=== PATIENT | female | born 1970 | race African-American/Black ===

== ENCOUNTER 2016-09-10 12:39 | Emergency (ER) | payer MEDICAID ==
[~2016-09-10] VITALS: Ht 167.6 cm; Wt 90.7 kg
[2016-09-10 12:46] VITALS: BP 114/69; PULSE 100; RESP 18; TEMP 98.1; O2SAT 94
--- NOTE | 2016-09-10 13:12 | NUR ---
BROUGHT BACK TO BED #8 AND REPORT GIVEN TO EBONIE
--- NOTE | 2016-09-10 13:16 | NUR ---
Dr García at bedside examining patient
--- NOTE | 2016-09-10 13:18 | NUR ---
Pt brought by self, A&Ox4, pt c/o cough and congestion, skin pink and warm, cap refill <3, VS WNL, ambulatory, cap refill <3.
[2016-09-10] MEDS ORDERED: DEXAMETHASONE SOD PHOSPHATE 10 MG/ML VIAL IM ONE (13:30)
[2016-09-10] MEDS ORDERED: KETOROLAC TROMETHAMINE 60 MG/2 ML VIAL IM ONE (13:30)
[2016-09-10 14:05] VITALS: BP 116/82; PULSE 68; RESP 18; TEMP 98.1; O2SAT 94
--- NOTE | 2016-09-10 14:05 | NUR ---
Patient given written and verbal discharge instructions and verbalizes understanding. ER MD discussed with patient the results and treatment provided. Given copies of tests performed in ER. Patient in stable condition. ID arm band removed. Rx of Azythromax and Codeine with promethazine given. Patient educated on pain management and to follow up with PMD. Pain Scale 0/10. Opportunity for questions provided and answered.
== END 2016-09-10 14:05 | disposition home or self-care (01) ==
LOC: SED 12:39
DX: J20.9 Acute bronchitis, unspecified (principal); J02.9 Acute pharyngitis, unspecified; I10 Essential (primary) hypertension; F17.200 Nicotine dependence, unspecified, uncomplicated; Z71.6 Tobacco abuse counseling; Z88.0 Allergy status to penicillin; Z88.1 Allergy status to other antibiotic agents
CPT/HCPCS: 71010; 96372; 99284; J1100; J1885

== ENCOUNTER 2016-12-02 21:02 | Emergency (ER) | payer MEDICAID ==
[~2016-12-02] VITALS: Ht 167.6 cm; Wt 88.5 kg
[2016-12-02 21:10] VITALS: BP 122/81; PULSE 83; RESP 18; TEMP 97.6; O2SAT 100
--- NOTE | 2016-12-02 21:10 | NUR ---
Patient triaged and placed in waiting room. VSS and patient appears in no acute distress at this time. Accompanied by self, awaiting available bed, and MD notified of need for MSE.
--- NOTE | 2016-12-02 22:00 | NUR ---
PT C/O LUNGS FILLING UP W/ FLUID AND COUGHS UP YELLOWISH FLEM AND WHITE FLUID, FEELS IT GETS WORSE AT NIGHT. ALSO STATES HER LEFT HAND SWELLS UP FROM TIME TO TIME WHERE SHE CAN'T MOVE HER FINGERS. PT A/OX4, NO SOB OR DISTRESS. AFEBRILE. AUSCULTATED RHONCHI BILATERALLY.
--- NOTE | 2016-12-02 22:25 | NUR ---
ER at bedside examining patient.
[2016-12-02 23:24] LABS: HEMATOCRIT 40.8 % (36-48); HEMOGLOBIN 13.1 g/dL (12.0-16.0); MEAN CORPUSCULAR HEMOGLOBIN 27 pg (27-31); MEAN CORPUSCULAR HGB CONC 32 % (32-36); MEAN CORPUSCULAR VOLUME 84 fL (79.0-98.0); PLATELET COUNT (AUTO) 322 K/uL (130-430); RED BLOOD CELL COUNT(AUTO) 4.88 MIL/uL (4.2-6.2); RED CELL DISTRIBUTION WIDTH 14.4 % (9.0-15.0); WHITE BLOOD COUNT (AUTO) 10.5 K/uL (4.8-10.8)
[2016-12-02 23:25] LABS: BASOPHILS # (AUTO) 0.2 K/uL (0.0-0.2); BASOPHILS % (AUTO) 1.7 % (0.0-2.0); EOSINOPHILS # (AUTO) 0.4 K/uL (0.0-0.4); EOSINOPHILS % (AUTO) 3.8 % (0.0-4.0); LYMPHOCYTES # (AUTO) 2.1 K/uL (1.0-5.5); MONOCYTES # (AUTO) 0.4 K/uL (0.0-1.0); NEUTROPHILS # (AUTO) 7.4 K/uL (1.8-7.7); NEUTROPHILS % (AUTO) 70.5 % (40.0-70.0)
[2016-12-02 23:29] LABS: CALCIUM 8.6 mg/dL (8.4-11.0); CREATININE 0.76 mg/dL (0.55-1.30); POTASSIUM 3.8 mmol/L (3.5-5.1)
[2016-12-02 23:30] LABS: ALBUMIN 3.4 g/dL (3.4-4.8); TOTAL BILIRUBIN 0.1 mg/dL (0.0-1.0); TOTAL PROTEIN, SERUM 7.4 g/dL (6.4-8.3)
[2016-12-02 23:43] LABS: BILIRUBIN,URINE NEGATIVE (NEGATIVE); BLOOD, URINE 1+ (NEGATIVE); CLARITY/URINE CLEAR (CLEAR); COLOR,URINE YELLOW (YELLOW); GLUCOSE,URINE NEGATIVE (NEGATIVE); KETONES,URINE NEGATIVE (NEGATIVE); LEUKOCYTE ESTERASE ,URINE NEGATIVE (NEGATIVE); NITRITE, URINE NEGATIVE (NEGATIVE); PROTEIN URINE NEGATIVE (NEGATIVE); UROBILINOGEN,URINE 0.2 (0.2-1.0)
[2016-12-02 23:44] LABS: BACTERIA,URINE FEW /HPF (None Seen); WBC,URINE 0-3 /HPF (0-3)
[2016-12-02 23:45] LABS: MUCUS,URINE 1+ /LPF (None Seen)
[2016-12-03 01:03] VITALS: BP 122/81; PULSE 83; RESP 18; TEMP 97.6; O2SAT 100
--- NOTE | 2016-12-03 01:03 | NUR ---
Patient given written and verbal discharge instructions and verbalizes understanding. ER MD BOSTON discussed with patient the results and treatment provided. Patient in stable condition. ID arm band removed. IV catheter removed intact and dressing applied, no active bleeding. Rx of PROMETHAZINE, DOXYCYCLINE, AND IBUPROFEN 800 given. Patient educated on pain management and to follow up with PMD. Pain Scale 0/10. Opportunity for questions provided and answered.
== END 2016-12-03 01:03 | disposition home or self-care (01) ==
LOC: SED 21:02
DX: M79.642 Pain in left hand (principal); R05 Cough; R06.02 Shortness of breath; I10 Essential (primary) hypertension; Z88.1 Allergy status to other antibiotic agents; Z88.0 Allergy status to penicillin
CPT/HCPCS: 36415; 71010; 80053; 81000-TC; 83880; 84484; 85025; 93005; 99285

== ENCOUNTER 2017-08-22 12:13 | Emergency (ER) | payer OTHER, MEDICAID ==
[~2017-08-22] VITALS: Ht 167.6 cm; Wt 95.3 kg
[2017-08-22 12:13] VITALS: BP_SYST 117
[2017-08-22 13:08] LABS: BASOPHILS % (AUTO) 0.2 % (0.0-2.0); EOSINOPHILS # (AUTO) 0.2 K/uL (0.0-0.4); EOSINOPHILS % (AUTO) 2.3 % (0.0-4.0); HEMATOCRIT 42.8 % (36-48); HEMOGLOBIN 13.7 g/dL (12.0-16.0); LYMPHOCYTES # (AUTO) 2.1 K/uL (1.0-5.5); LYMPHOCYTES % (AUTO) 20.5 % (20.5-51.5); MEAN CORPUSCULAR HEMOGLOBIN 26 pg (27-31); MEAN CORPUSCULAR HGB CONC 32 % (32-36); MEAN CORPUSCULAR VOLUME 82 fL (79.0-98.0); MONOCYTES # (AUTO) 0.4 K/uL (0.0-1.0); MONOCYTES % (AUTO) 3.5 % (1.7-9.3); NEUTROPHILS # (AUTO) 7.7 K/uL (1.8-7.7); NEUTROPHILS % (AUTO) 73.5 % (40.0-70.0); PLATELET COUNT (AUTO) 368 K/uL (130-430); RED BLOOD CELL COUNT(AUTO) 5.26 MIL/uL (4.2-6.2); RED CELL DISTRIBUTION WIDTH 15.8 % (9.0-15.0); WHITE BLOOD COUNT (AUTO) 10.4 K/uL (4.8-10.8)
[2017-08-22 13:23] LABS: PROTHROMBIN TIME 10.1 SECS (9.5-12.5)
[2017-08-22 13:43] LABS: POTASSIUM 3.9 mmol/L (3.5-5.1)
[2017-08-22 13:44] LABS: ALBUMIN 3.4 g/dL (3.4-4.8); CALCIUM 9.9 mg/dL (8.4-11.0); CREATININE 0.78 mg/dL (0.55-1.30); TOTAL BILIRUBIN 0.2 mg/dL (0.0-1.0); URIC ACID 3.1 mg/dL (2.4-7.0)
[2017-08-22 13:58] LABS: C-REACTIVE PROTEIN QUANT 11.7 mg/dL (0-0.5)
[2017-08-22] MEDS ORDERED: KETOROLAC TROMETHAMINE 60 MG/2 ML VIAL IM ONE (16:00)
[2017-08-22] MEDS ORDERED: CYCLOBENZAPRINE HCL 10 MG TABLET (FLEXERIL) PO ONE (16:00)
[2017-08-22 18:06] VITALS: BP_SYST 120
== END 2017-08-22 18:03 | disposition home or self-care (01) ==
LOC: EDBD 12:13 → SED 12:13
DX: S46.912A Strain of unspecified muscle, fascia and tendon at shoulder and upper arm level, left arm, initial encounter (principal); I10 Essential (primary) hypertension; Z88.0 Allergy status to penicillin; Z88.1 Allergy status to other antibiotic agents; X58.XXXA Exposure to other specified factors, initial encounter; Y93.89 Activity, other specified; Y92.89 Other specified places as the place of occurrence of the external cause; Y99.8 Other external cause status
CPT/HCPCS: 36415; 71045; 73030; 80053; 84484; 84550; 85025; 85610; 85730; 86140; 93005; 96372; 99285; J1885; J7030

== ENCOUNTER 2018-11-03 19:44 | Emergency (ER) | payer MEDICAID, OTHER ==
[~2018-11-03] VITALS: Ht 167.6 cm; Wt 99.8 kg
[2018-11-03 19:52] VITALS: BP_SYST 131
[2018-11-03 21:16] VITALS: BP_SYST 131
== END 2018-11-03 21:15 | disposition home or self-care (01) ==
LOC: SED 19:44
DX: J06.9 Acute upper respiratory infection, unspecified (principal); I10 Essential (primary) hypertension; Z88.0 Allergy status to penicillin; Z88.8 Allergy status to other drugs, medicaments and biological substances
CPT/HCPCS: 99283

== ENCOUNTER 2019-02-25 23:05 | Emergency (ER) | payer MEDICAID ==
[~2019-02-25] VITALS: Ht 165.1 cm; Wt 99.8 kg
[2019-02-25 23:10] VITALS: BP_SYST 154
--- NOTE | 2019-02-25 23:15 | NUR ---
Patient to ER bed 07 for evaluation. Side rails up. Report given to Patrizia.
--- NOTE | 2019-02-25 23:20 | NUR ---
Patient brought in with self complaining of productive cough x 1 week with yellow sputum. Denies any nausea, vomiting or diarrhea. Denies any shortness of breath. No other complaints/injuries per patient or as noted. Will continue to monitor
--- NOTE | 2019-02-25 23:21 | NUR ---
ER Dr. Lindsay at bedside examining patient.
[2019-02-25] MEDS ORDERED: AZITHROMYCIN 250 MG TABLET PO ONE (23:45)
[2019-02-25 23:57] VITALS: BP_SYST 152
--- NOTE | 2019-02-25 23:57 | NUR ---
Patient given written and verbal discharge instructions and verbalizes understanding. ER MD Lindsay discussed with patient the results and treatment provided. Patient in stable condition. ID arm band removed. Rx of Z-robbie and Promethazine with Codeine given. Patient educated on pain management and to follow up with PMD. Pain Scale 0/10 Opportunity for questions provided and answered. Medication side effect fact sheet provided.
== END 2019-02-25 23:57 | disposition home or self-care (01) ==
LOC: SED 23:05
DX: J20.9 Acute bronchitis, unspecified (principal); E11.9 Type 2 diabetes mellitus without complications; I10 Essential (primary) hypertension; Z88.0 Allergy status to penicillin; Z88.8 Allergy status to other drugs, medicaments and biological substances
CPT/HCPCS: 99283; Q0144

== ENCOUNTER 2019-03-03 11:06 | Emergency (ER) | payer MEDICAID ==
[~2019-03-03] VITALS: Ht 167.6 cm; Wt 99.8 kg
[2019-03-03 11:13] VITALS: BP_SYST 124
[2019-03-03] MEDS ORDERED: ALBUTEROL SULFATE 0.083% 2.5 MG/3 ML VIAL.NEB INH ONE ×2 (11:30→11:39)
[2019-03-03] MEDS ORDERED: IPRATROPIUM BROM 0.5 MG/2.5 ML VIAL.NEB (ATROVENT) INH ONE ×2 (11:30→11:39)
[2019-03-03 12:54] LABS: BASOPHILS # (AUTO) 0.1 K/uL (0.0-0.2); EOSINOPHILS # (AUTO) 0.8 K/uL (0.0-0.4); EOSINOPHILS % (AUTO) 7.4 % (0.0-4.0); HEMATOCRIT 41.7 % (36-48); LYMPHOCYTES # (AUTO) 1.8 K/uL (1.0-5.5); LYMPHOCYTES % (AUTO) 17.6 % (20.5-51.5); MEAN CORPUSCULAR HEMOGLOBIN 28 pg (27-31); MEAN CORPUSCULAR HGB CONC 34 % (32-36); MEAN CORPUSCULAR VOLUME 83 fL (79.0-98.0); MONOCYTES # (AUTO) 0.4 K/uL (0.0-1.0); MONOCYTES % (AUTO) 4.2 % (1.7-9.3); NEUTROPHILS # (AUTO) 7.1 K/uL (1.8-7.7); NEUTROPHILS % (AUTO) 69.8 % (40.0-70.0); PLATELET COUNT (AUTO) 311 K/uL (130-430); RED BLOOD CELL COUNT(AUTO) 5.01 MIL/uL (4.2-6.2); RED CELL DISTRIBUTION WIDTH 16.4 % (9.0-15.0); WHITE BLOOD COUNT (AUTO) 10.2 K/uL (4.8-10.8)
[2019-03-03 13:15] LABS: ANION GAP 12 (5-15); CALCIUM 8.8 mg/dL (8.4-11.0); CHLORIDE 103 mmol/L (98-107); GLUCOSE 119 mg/dL (70-99); POTASSIUM 3.9 mmol/L (3.5-5.1); SODIUM SERUM 140 mmol/L (136-145); UREA NITROGEN, BLOOD 11 mg/dL (8-21)
[2019-03-03 13:24] LABS: ALANINE AMINOTRANSFERASE 22 U/L (12-78); ASPARTATE AMINOTRANSFERASE 17 U/L (10-37); TOTAL BILIRUBIN 0.2 mg/dL (0.0-1.0)
[2019-03-03 13:26] LABS: GFR AFRICAN AMERICAN 115 mL/min (>90)
== END 2019-03-03 14:48 | disposition home or self-care (01) ==
LOC: SED 11:06
DX: J45.909 Unspecified asthma, uncomplicated (principal); I10 Essential (primary) hypertension; Z88.0 Allergy status to penicillin; Z88.8 Allergy status to other drugs, medicaments and biological substances
CPT/HCPCS: 36415; 71045; 80053; 83880; 84484; 85025; 94640; 99284; J7613

== ENCOUNTER 2019-04-20 22:10 | Emergency (ER) | payer MEDICAID ==
[~2019-04-20] VITALS: Ht 167.6 cm; Wt 95.3 kg
[2019-04-20 22:13] VITALS: BP_SYST 143
--- NOTE | 2019-04-20 22:13 | NUR ---
PLACED ON ROOM 01. PLACED ON AIRCONDITIONING ENGINEER, BLOOD PRESSURE MACHINE, AND PULSE OXIMETER. TO GOWN FOR EXAM. SIDE RAILS UP.
--- NOTE | 2019-04-20 22:30 | NUR ---
AWAKE, ALERT, ORIENTED. STATES SHE HAD BEEN HAVING A COUGH FOR 2 WEEKS NOW, AND HAS CHEST PAIN WHENEVER SHE COUGHS.
--- NOTE | 2019-04-20 23:40 | NUR ---
ER at bedside examining patient.
[2019-04-20] MEDS ORDERED: IPRATROPIUM/ALBUTEROL SULFATE 3 ML AMPUL.NEB (DUONEB) INH ONE (23:45)
[2019-04-21 00:08] LABS: BASOPHILS # (AUTO) 0.1 K/uL (0.0-0.2); BASOPHILS % (AUTO) 1.3 % (0.0-2.0); EOSINOPHILS # (AUTO) 0.7 K/uL (0.0-0.4); EOSINOPHILS % (AUTO) 7.3 % (0.0-4.0); HEMATOCRIT 41.1 % (36-48); HEMOGLOBIN 13.8 g/dL (12.0-16.0); LYMPHOCYTES # (AUTO) 2.9 K/uL (1.0-5.5); LYMPHOCYTES % (AUTO) 29.6 % (20.5-51.5); MEAN CORPUSCULAR HEMOGLOBIN 28 pg (27-31); MEAN CORPUSCULAR HGB CONC 34 % (32-36); MEAN CORPUSCULAR VOLUME 84 fL (79.0-98.0); MONOCYTES # (AUTO) 0.7 K/uL (0.0-1.0); MONOCYTES % (AUTO) 7.5 % (1.7-9.3); NEUTROPHILS # (AUTO) 5.3 K/uL (1.8-7.7); NEUTROPHILS % (AUTO) 54.3 % (40.0-70.0); PLATELET COUNT (AUTO) 276 K/uL (130-430); RED CELL DISTRIBUTION WIDTH 16.3 % (9.0-15.0); WHITE BLOOD COUNT (AUTO) 9.8 K/uL (4.8-10.8)
[2019-04-21 00:16] LABS: CALCIUM 9.1 mg/dL (8.4-11.0); CREATININE 0.8 mg/dL (0.55-1.30); POTASSIUM 4.3 mmol/L (3.5-5.1)
[2019-04-21 00:27] LABS: ALBUMIN 3.3 g/dL (3.4-4.8); TOTAL BILIRUBIN 0.1 mg/dL (0.0-1.0)
[2019-04-21 01:10] VITALS: BP_SYST 143
--- NOTE | 2019-04-21 01:10 | NUR ---
Patient given written and verbal discharge instructions and verbalizes understanding. ER DR JUSTYN MORENO discussed with patient the results and treatment provided. Patient in stable condition. ID arm band removed. IV catheter removed intact and dressing applied, no active bleeding. Rx of TESSALON PEARLES, PREDNISONE, ALBUTEROL given. Patient educated on pain management and to follow up with PMD. Pain Scale 0/10. Opportunity for questions provided and answered. Medication side effect fact sheet provided.
== END 2019-04-21 01:10 | disposition home or self-care (01) ==
LOC: SED 22:10
DX: J40 Bronchitis, not specified as acute or chronic (principal); I10 Essential (primary) hypertension; Z88.0 Allergy status to penicillin; Z88.8 Allergy status to other drugs, medicaments and biological substances
CPT/HCPCS: 36415; 71046; 80053; 82550; 84484; 85025; 93005; 94640; 99284; J7620

== ENCOUNTER 2021-05-10 22:17 | Emergency (ER) | payer MEDICAID ==
[~2021-05-10] VITALS: Ht 167.6 cm; Wt 99.8 kg
[2021-05-10 22:17] VITALS: BP_SYST 127
--- NOTE | 2021-05-10 22:17 | NUR ---
Patient triaged and placed in waiting room. VSS and patient appears in no acute distress at this time. Accompanied by SELF, awaiting available bed, and MD notified of need for MSE.
--- NOTE | 2021-05-11 01:36 | NUR ---
PT ARRIVED TO ER FOR A ABSESS TO RIGHT SIDE OF NECK. PT STATES 3-4 DAYS AGO SHE NOTICED A BUMP ON HER NECK AD IT HAS BEEN GETTING WORSE AND WORSE. 10/10 PAIN. PT HASNT TAKEN ANY MEDS FOR RELIEF.
[2021-05-11] MEDS ORDERED: LIDOCAINE 1% 10 MG/ML, 20 ML MDV INJ ONE (01:45)
--- NOTE | 2021-05-11 02:30 | NUR ---
ER at bedside examining patient.
--- NOTE | 2021-05-11 03:00 | NUR ---
dr hamm at beside performing abcess drainage
--- NOTE | 2021-05-11 03:27 | NUR ---
area cleaned and clear tegaderm placed on pt's abcess.
[2021-05-11] MEDS ORDERED: CLIN300C12 PO (03:31)
[2021-05-11] MEDS ORDERED: NAPR-686 PO (03:31)
[2021-05-11] MEDS ORDERED: HYDR-3917 PO (03:31)
--- NOTE | 2021-05-11 03:42 | NUR ---
Patient given written and verbal discharge instructions and verbalizes understanding. ER MD discussed with patient the results and treatment provided. Patient in stable condition. ID arm band removed. Rx of clindamycin, norco, naproxen given. Patient educated on pain management and to follow up with PMD. Pain Scale 4/10. Opportunity for questions provided and answered. Medication side effect fact sheet provided.
[2021-05-11 03:43] VITALS: BP_SYST 142
[2021-05-11] MEDS ORDERED: CLINDAMYCIN HCL 150 MG CAPSULE PO ONE (03:45)
== END 2021-05-11 03:43 | disposition home or self-care (01) ==
LOC: SED 22:17
DX: L02.11 Cutaneous abscess of neck (principal)
CPT/HCPCS: 10060; 99283; J2001

== ENCOUNTER 2021-05-14 22:43 | Emergency (ER) | payer MEDICAID ==
[~2021-05-14] VITALS: Ht 167.6 cm; Wt 99.8 kg
[~2021-05-14 22:43] MED LIST: CLIN300C12 PO; HYDR-3917 PO; NAPR-686 PO
[2021-05-14 22:50] VITALS: BP_SYST 157
[2021-05-15 00:27] VITALS: BP_SYST 157
== END 2021-05-15 00:27 | disposition home or self-care (01) ==
LOC: SED 22:43
DX: L02.11 Cutaneous abscess of neck (principal); I10 Essential (primary) hypertension; E11.9 Type 2 diabetes mellitus without complications; Z88.1 Allergy status to other antibiotic agents; Z88.0 Allergy status to penicillin; Z79.899 Other long term (current) drug therapy
CPT/HCPCS: 99282

== ENCOUNTER 2021-05-29 22:37 | Emergency (ER) | payer MEDICAID ==
[~2021-05-29] VITALS: Ht 167.6 cm; Wt 102.1 kg
[2021-05-29 22:47] VITALS: BP_SYST 144
--- NOTE | 2021-05-30 00:08 | NUR ---
PT ARRIVED TO ER FOR A ABSCESS UNDERNEATH LEFT BREAST. PT STATES IT STARTED ON 05/22/21 AND IT STARTED DRAINING RECENTLY. STATES 05/10 PAIN AND IS VERY TENDER. PT HAS BEEN TRYING TO KEEP IT CLEAN AND CHANGING DRESSINGS ON IT. PT IS A&OX4
--- NOTE | 2021-05-30 01:30 | NUR ---
ER at bedside examining patient.
[2021-05-30] MEDS ORDERED: SULF1TAB48 PO (01:43)
--- NOTE | 2021-05-30 01:49 | NUR ---
Patient given written and verbal discharge instructions and verbalizes understanding. ER MD discussed with patient the results and treatment provided. Patient in stable condition. ID arm band removed. Rx of BACTRIM given. Patient educated on pain management and to follow up with PMD. Pain Scale 3/10. Opportunity for questions provided and answered. Medication side effect fact sheet provided.
[2021-05-30 01:51] VITALS: BP_SYST 138
== END 2021-05-30 01:49 | disposition home or self-care (01) ==
LOC: SED 22:37
DX: N61.1 Abscess of the breast and nipple (principal); I10 Essential (primary) hypertension; E11.9 Type 2 diabetes mellitus without complications; Z88.0 Allergy status to penicillin; Z88.1 Allergy status to other antibiotic agents; Z79.899 Other long term (current) drug therapy
CPT/HCPCS: 99283

== ENCOUNTER 2021-06-10 10:06 | Emergency (ER) | payer MEDICAID ==
[~2021-06-10] VITALS: Ht 167.6 cm; Wt 102.1 kg
[2021-06-10 10:06] VITALS: BP_SYST 114
[~2021-06-10 10:06] MED LIST changes: +SULF1TAB48 PO
[2021-06-10] MEDS ORDERED: KETOROLAC TROMETHAMINE 60 MG/2 ML VIAL IM ONE (11:15)
[2021-06-10] MEDS ORDERED: TRAM50TA PO (12:13)
[2021-06-10] MEDS ORDERED: DICL100G33 TP (12:13)
[2021-06-10 12:19] VITALS: BP_SYST 114
== END 2021-06-10 12:19 | disposition home or self-care (01) ==
LOC: SED 10:06
DX: S29.012A Strain of muscle and tendon of back wall of thorax, initial encounter (principal); I10 Essential (primary) hypertension; E11.9 Type 2 diabetes mellitus without complications; Z88.0 Allergy status to penicillin; Z88.1 Allergy status to other antibiotic agents; Z88.8 Allergy status to other drugs, medicaments and biological substances; Z79.899 Other long term (current) drug therapy; X50.9XXA Other and unspecified overexertion or strenuous movements or postures, initial encounter; Y93.89 Activity, other specified; Y92.89 Other specified places as the place of occurrence of the external cause; Y99.8 Other external cause status
CPT/HCPCS: 72072; 96372; 99283; J1885

== ENCOUNTER 2021-07-12 10:34 | Emergency (ER) | payer MEDICAID ==
[~2021-07-12] VITALS: Ht 167.6 cm; Wt 102.1 kg
[~2021-07-12 10:34] MED LIST changes: +DICL100G33 TP; +TRAM50TA PO
[2021-07-12 10:45] VITALS: BP_SYST 156
--- NOTE | 2021-07-12 10:45 | NUR ---
Pt AAO and ambulatory reporting cough X 3 days. Pt reports that she commonly gets bronchitis annually and feels that her symptoms are the same. Pt reports 10/10 back/rib pain and pt has a history of hypertension.
--- NOTE | 2021-07-12 10:45 | NUR ---
Pt to tent for evaluation.
--- NOTE | 2021-07-12 10:54 | NUR ---
Dr. Perla to tent to assess.
[2021-07-12] MEDS ORDERED: ALBU8.5H8 INH (11:38)
[2021-07-12] MEDS ORDERED: ZIT250 PO (11:38)
[2021-07-12] MEDS ORDERED: PRED20TA PO (11:38)
--- NOTE | 2021-07-12 12:04 | NUR ---
Dr. Perla spoke with pt. in detail regarding tx. options and reviewed prescriptions
[2021-07-12 12:05] VITALS: BP_SYST 149
--- NOTE | 2021-07-12 12:07 | NUR ---
Patient given written and verbal discharge instructions and verbalizes understanding. Dr. Perla discussed with patient the results and treatment provided. Patient in stable condition. ID arm band removed. Rx of albuterol, prednisone, zithromax, and phenergan with codeine given. Patient educated on pain management and to follow up with PMD. Pain Scale 3. Opportunity for questions provided and answered. Medication side effect fact sheet provided.
== END 2021-07-12 12:05 | disposition home or self-care (01) ==
LOC: SED 10:34
DX: J45.909 Unspecified asthma, uncomplicated (principal); I10 Essential (primary) hypertension; E11.9 Type 2 diabetes mellitus without complications; Z88.0 Allergy status to penicillin; Z88.1 Allergy status to other antibiotic agents; Z88.8 Allergy status to other drugs, medicaments and biological substances; Z79.899 Other long term (current) drug therapy; Z20.822 Contact with and (suspected) exposure to COVID-19
CPT/HCPCS: 36415; 71045; 99284

== ENCOUNTER 2021-07-15 11:57 | Emergency (ER) | payer MEDICAID ==
[~2021-07-15] VITALS: Ht 167.6 cm; Wt 102.1 kg
[~2021-07-15 11:57] MED LIST changes: +ALBU8.5H8 INH; +PRED20TA PO; +ZIT250 PO
[2021-07-15 12:05] VITALS: BP_SYST 145
--- NOTE | 2021-07-15 12:05 | NUR ---
Pt to bed 6 for evaluation.
--- NOTE | 2021-07-15 12:10 | NUR ---
Pt AAO reporting cough and wheezing X 1 week. Pt was previously seen on the 12th and diagnosed with Bronchitis. Pt feels that she is getting worse every day. Pt has bilateral wheezing and spo2 is 94% currently. Pt has history of HTN. V/S are stable.
--- NOTE | 2021-07-15 12:15 | NUR ---
Dr. Peterson at bedside to assess.
--- NOTE | 2021-07-15 12:18 | NUR ---
Report given to JEANETTE Douglass who will assume care.
[2021-07-15] MEDS ORDERED: ALBUTEROL SULFATE 0.083% 2.5 MG/3 ML VIAL.NEB INH ONE (12:30)
[2021-07-15] MEDS ORDERED: methylPREDNISolone SOD SUCC/PF 62.5 MG/ML VIAL IVP ONE (12:30)
[2021-07-15] MEDS ORDERED: IPRATROPIUM BROM 0.5 MG/2.5 ML VIAL.NEB (ATROVENT) INH ONE ×2 (12:30→14:00)
[2021-07-15 13:16] LABS: BASOPHILS % (AUTO) 0.3 % (0.0-2.0); EOSINOPHILS % (AUTO) 0.3 % (0.0-4.0); HEMATOCRIT 41.7 % (36-48); HEMOGLOBIN 13.6 g/dL (12.0-16.0); LYMPHOCYTES # (AUTO) 1.5 K/uL (1.0-5.5); LYMPHOCYTES % (AUTO) 11.3 % (20.5-51.5); MEAN CORPUSCULAR HEMOGLOBIN 26 pg (27-31); MEAN CORPUSCULAR HGB CONC 33 % (32-36); MEAN CORPUSCULAR VOLUME 81 fL (79.0-98.0); MONOCYTES # (AUTO) 0.3 K/uL (0.0-1.0); MONOCYTES % (AUTO) 2.4 % (1.7-9.3); NEUTROPHILS # (AUTO) 11.3 K/uL (1.8-7.7); NEUTROPHILS % (AUTO) 85.7 % (40.0-70.0); PLATELET COUNT (AUTO) 336 K/uL (130-430); RED BLOOD CELL COUNT(AUTO) 5.15 MIL/uL (4.2-6.2); RED CELL DISTRIBUTION WIDTH 15.9 % (9.0-15.0); WHITE BLOOD COUNT (AUTO) 13.1 K/uL (4.8-10.8)
[2021-07-15 13:21] LABS: CALCIUM 8.9 mg/dL (8.4-11.0); CREATININE 0.7 mg/dL (0.55-1.30)
[2021-07-15 13:33] LABS: ALBUMIN 3.4 g/dL (3.4-4.8); TOTAL BILIRUBIN 0.1 mg/dL (0.0-1.0)
[2021-07-15] MEDS ORDERED: IPRATROPIUM/ALBUTEROL SULFATE 3 ML AMPUL.NEB (DUONEB) INH ONE (14:00)
[2021-07-15] MEDS ORDERED: PRED10TA PO (15:50)
--- NOTE | 2021-07-15 16:07 | NUR ---
Patient given written and verbal discharge instructions and verbalizes understanding. ER MD discussed with patient the results and treatment provided. Patient in stable condition. ID arm band removed. IV catheter removed intact and dressing applied, no active bleeding. Rx of Predisone given. Patient educated on pain management and to follow up with PMD. Opportunity for questions provided and answered. Medication side effect fact sheet provided.
[2021-07-15 16:08] VITALS: BP_SYST 145
== END 2021-07-15 16:07 | disposition home or self-care (01) ==
LOC: SED 11:57
DX: J44.9 Chronic obstructive pulmonary disease, unspecified (principal); I10 Essential (primary) hypertension; E11.9 Type 2 diabetes mellitus without complications; Z88.0 Allergy status to penicillin; Z88.1 Allergy status to other antibiotic agents; Z79.899 Other long term (current) drug therapy
CPT/HCPCS: 36415; 71045; 80053; 83880; 84484; 85025; 93005; 94640; 96374; 99285; J2930; J7613

== ENCOUNTER 2021-07-17 19:06 | Emergency (ER) | payer MEDICAID ==
[~2021-07-17 19:06] MED LIST changes: +PRED10TA PO
--- NOTE | 2021-07-17 19:10 | NUR ---
Patient to ER bed 7 to gown for evaluation. Side rails up.
[2021-07-17 20:45] VITALS: BP_SYST 143
--- NOTE | 2021-07-17 20:52 | NUR ---
Patient transported to radiology via ambulatory, accompanied by copier technician.
[2021-07-17] MEDS ORDERED: IPRATROPIUM/ALBUTEROL SULFATE 3 ML AMPUL.NEB (DUONEB) INH ONE ×2 (21:00→22:45)
[2021-07-17] MEDS ORDERED: ALBU2.5V7 INH (22:35)
[2021-07-17] MEDS ORDERED: NEBU1KIT34 MC (22:35)
--- NOTE | 2021-07-17 22:37 | NUR ---
Patient given written and verbal discharge instructions and verbalizes understanding. ER MD discussed with patient the results and treatment provided. Patient in stable condition. ID arm band removed. Rx of Albuterol given. Patient educated on pain management and to follow up with PMD. Pain Scale 0. Opportunity for questions provided and answered. Medication side effect fact sheet provided.
== END 2021-07-17 22:37 | disposition home or self-care (01) ==
LOC: SED 19:06
DX: J44.1 Chronic obstructive pulmonary disease with (acute) exacerbation (principal); I10 Essential (primary) hypertension; E11.9 Type 2 diabetes mellitus without complications; Z88.0 Allergy status to penicillin; Z79.899 Other long term (current) drug therapy; Z88.8 Allergy status to other drugs, medicaments and biological substances
CPT/HCPCS: 71046-TC; 94640; 94760; 99283

== ENCOUNTER 2021-10-25 14:51 | Emergency (ER) | payer MEDICAID, SELFPAY ==
[~2021-10-25] VITALS: Ht 167.6 cm; Wt 104.3 kg
[~2021-10-25 14:51] MED LIST changes: +ALBU2.5V7 INH; +CLIN-142 PO; -CLIN300C12 PO; +NEBU1KIT34 MC
[2021-10-25 14:56] VITALS: BP_SYST 130
--- NOTE | 2021-10-25 15:02 | NUR ---
Patient to ER bed 02 to gown for evaluation. Side rails up.
--- NOTE | 2021-10-25 15:10 | NUR ---
KYREE Toussaint at bedside examining patient.
[2021-10-25] MEDS ORDERED: ASPIRIN 81 MG TAB.CHEW PO ONE (15:30)
[2021-10-25] MEDS ORDERED: ALBUTEROL SULFATE 0.083% 2.5 MG/3 ML VIAL.NEB INH ONE (15:30)
[2021-10-25] MEDS ORDERED: KETOROLAC TROMETHAMINE 30 MG VIAL IVP ONE (15:30)
[2021-10-25 16:06] LABS: BASOPHILS # (AUTO) 0.1 K/uL (0.0-0.2); EOSINOPHILS # (AUTO) 0.4 K/uL (0.0-0.4); HEMATOCRIT 41.2 % (36-48)
[2021-10-25 16:19] LABS: BASOPHILS % (AUTO) 0.7 % (0.0-2.0); HEMOGLOBIN 13.8 g/dL (12.0-16.0); LYMPHOCYTES # (AUTO) 2.3 K/uL (1.0-5.5); LYMPHOCYTES % (AUTO) 27.4 % (20.5-51.5); MEAN CORPUSCULAR HEMOGLOBIN 27 pg (27-31); MEAN CORPUSCULAR HGB CONC 33 % (32-36); MEAN CORPUSCULAR VOLUME 82 fL (79.0-98.0); MONOCYTES # (AUTO) 0.4 K/uL (0.0-1.0); MONOCYTES % (AUTO) 4.6 % (1.7-9.3); NEUTROPHILS # (AUTO) 5.3 K/uL (1.8-7.7); NEUTROPHILS % (AUTO) 62.3 % (40.0-70.0); PLATELET COUNT (AUTO) 350 K/uL (130-430); RED BLOOD CELL COUNT(AUTO) 5.06 MIL/uL (4.2-6.2); RED CELL DISTRIBUTION WIDTH 15.9 % (9.0-15.0); WHITE BLOOD COUNT (AUTO) 8.5 K/uL (4.8-10.8)
[2021-10-25 16:42] LABS: ALANINE AMINOTRANSFERASE 13 U/L (12-78); ALBUMIN 3.2 g/dL (3.4-4.8); ASPARTATE AMINOTRANSFERASE 12 U/L (10-37); CALCIUM 8.9 mg/dL (8.4-11.0); CREATININE 0.79 mg/dL (0.55-1.30); GLUCOSE 128 mg/dL (70-99); UREA NITROGEN, BLOOD 17 mg/dL (8-21)
[2021-10-25 16:43] LABS: GFR AFRICAN AMERICAN 99 mL/min (>90)
--- NOTE | 2021-10-25 17:00 | NUR ---
covid swab performed at bedside and sent to lab
[2021-10-25 17:02] LABS: ANION GAP 10 (5-15); CHLORIDE 104 mmol/L (98-107); POTASSIUM 4.2 mmol/L (3.5-5.1); SODIUM SERUM 138 mmol/L (136-145)
[2021-10-25 17:03] LABS: TOTAL BILIRUBIN 0.2 mg/dL (0.0-1.0)
[2021-10-25 17:19] LABS: BILIRUBIN,URINE NEGATIVE (NEGATIVE); COLOR,URINE YELLOW (YELLOW); GLUCOSE,URINE NEGATIVE (NEGATIVE); KETONES,URINE TRACE (NEGATIVE); LEUKOCYTE ESTERASE ,URINE NEGATIVE (NEGATIVE); NITRITE, URINE NEGATIVE (NEGATIVE); PROTEIN URINE NEGATIVE (NEGATIVE); UROBILINOGEN,URINE 0.2 (0.2-1.0)
[2021-10-25 17:22] LABS: BLOOD, URINE TRACE (NEGATIVE); CLARITY/URINE SLIGHTLY HAZY (CLEAR)
[2021-10-25 17:27] LABS: BACTERIA,URINE FEW /HPF (None Seen); MUCUS,URINE None Seen /LPF (None Seen); RBC,URINE 0-3 /HPF (0-3)
--- NOTE | 2021-10-25 19:04 | NUR ---
Patient comes to ER with SOB and chest pain. Patient describes her pain as a dull pain in the middle of her chest. Patient states she had the pain for a few days and wanted to get it checked out today. Respiratory is WNL and skin is intact. VSS
[2021-10-25] MEDS ORDERED: IBUP-1969 PO (19:35)
[2021-10-25] MEDS ORDERED: SULF1TAB48 PO (19:35)
[2021-10-25] MEDS ORDERED: LIDOCAINE 1%, 20 ML MDV 20 ML ONE (19:44)
[2021-10-25] MEDS ORDERED: cefTRIAXone 1 GM VIAL IM ONE (19:45)
--- NOTE | 2021-10-25 20:02 | NUR ---
Patient given written and verbal discharge instructions and verbalizes understanding. ER MD discussed with patient the results and treatment provided. Patient in stable condition. ID arm band removed. Rx of Bactrim and Motrin given. Patient educated on pain management and to follow up with PMD. Pain Scale 0. Opportunity for questions provided and answered. Medication side effect fact sheet provided.
[2021-10-25 20:03] VITALS: BP_SYST 127
== END 2021-10-25 20:02 | disposition home or self-care (01) ==
LOC: SED 14:51
DX: J44.9 Chronic obstructive pulmonary disease, unspecified (principal); N39.0 Urinary tract infection, site not specified; E11.9 Type 2 diabetes mellitus without complications; I10 Essential (primary) hypertension; F17.210 Nicotine dependence, cigarettes, uncomplicated; Z88.1 Allergy status to other antibiotic agents; Z88.0 Allergy status to penicillin; Z20.822 Contact with and (suspected) exposure to COVID-19
CPT/HCPCS: 36415; 71045; 80053; 81000; 81025; 83605; 83880; 84484; 85025; 85379; 87040; 87426; 93005; 94640; 96372; 99285; J0696; J2001; J7613; 99283

== ENCOUNTER 2021-12-25 15:59 | Emergency (ER) | payer MEDICAID ==
[~2021-12-25] VITALS: Ht 167.6 cm; Wt 103.0 kg
[~2021-12-25 15:59] MED LIST changes: +IBUP-1969 PO
[2021-12-25 16:23] VITALS: BP_SYST 122
[2021-12-25 17:50] LABS: BASOPHILS # (AUTO) 0.1 K/uL (0.0-0.2); BASOPHILS % (AUTO) 0.7 % (0.0-2.0); EOSINOPHILS # (AUTO) 0.3 K/uL (0.0-0.4); EOSINOPHILS % (AUTO) 2.7 % (0.0-4.0); HEMATOCRIT 29.4 % (36-48); HEMOGLOBIN 10.2 g/dL (12.0-16.0); LYMPHOCYTES # (AUTO) 2.3 K/uL (1.0-5.5); LYMPHOCYTES % (AUTO) 23.6 % (20.5-51.5); MEAN CORPUSCULAR HEMOGLOBIN 28 pg (27-31); MEAN CORPUSCULAR HGB CONC 35 % (32-36); MEAN CORPUSCULAR VOLUME 81 fL (79.0-98.0); MONOCYTES # (AUTO) 0.5 K/uL (0.0-1.0); MONOCYTES % (AUTO) 4.6 % (1.7-9.3); NEUTROPHILS # (AUTO) 6.8 K/uL (1.8-7.7); NEUTROPHILS % (AUTO) 68.4 % (40.0-70.0); PLATELET COUNT (AUTO) 422 K/uL (130-430); RED BLOOD CELL COUNT(AUTO) 3.64 MIL/uL (4.2-6.2); RED CELL DISTRIBUTION WIDTH 15.4 % (9.0-15.0); WHITE BLOOD COUNT (AUTO) 9.9 K/uL (4.8-10.8)
[2021-12-25 17:59] LABS: PROTHROMBIN TIME 9.9 SECS (9.5-12.5)
[2021-12-25 18:02] LABS: BLOOD, URINE 3+ (NEGATIVE); CLARITY/URINE CLEAR (CLEAR); GLUCOSE,URINE NEGATIVE (NEGATIVE); KETONES,URINE TRACE (NEGATIVE); LEUKOCYTE ESTERASE ,URINE NEGATIVE (NEGATIVE); NITRITE, URINE NEGATIVE (NEGATIVE); PROTEIN URINE TRACE (NEGATIVE); UROBILINOGEN,URINE 0.2 (0.2-1.0)
[2021-12-25 18:07] LABS: CALCIUM 8.2 mg/dL (8.4-11.0); CREATININE 0.88 mg/dL (0.55-1.30); POTASSIUM 3.4 mmol/L (3.5-5.1)
[2021-12-25 18:12] LABS: ALBUMIN 2.9 g/dL (3.4-4.8); TOTAL BILIRUBIN 0.1 mg/dL (0.0-1.0)
[2021-12-25 18:28] LABS: BILIRUBIN,URINE 1+ (NEGATIVE); COLOR,URINE AMBER (YELLOW)
[2021-12-25 18:30] LABS: BACTERIA,URINE FEW /HPF (None Seen); CALCIUM OXALATE CRYSTALS,UR 0-10 /HPF (None Seen); MUCUS,URINE 1+ /LPF (None Seen); RBC,URINE 0-3 /HPF (0-3); WBC,URINE 0-3 /HPF (0-3)
[2021-12-25] MEDS ORDERED: MEDR10TA72 PO (19:14)
[2021-12-25 19:30] VITALS: BP_SYST 126
== END 2021-12-25 19:30 | disposition home or self-care (01) ==
LOC: SED 15:59
DX: N93.9 Abnormal uterine and vaginal bleeding, unspecified (principal); E11.9 Type 2 diabetes mellitus without complications; I10 Essential (primary) hypertension; Z88.0 Allergy status to penicillin
CPT/HCPCS: 36415; 76830-TC; 76857; 80053; 81000; 81025; 85025; 85610-TC; 99284

== ENCOUNTER → 2022-10-18 | Emergency (ER) | payer MEDICAID ==
[~2022-10-18] VITALS: Ht 167.6 cm; Wt 99.8 kg
[~2022-10-18] MED LIST changes: +MAG HYDROX/AL HYDROX/SIMETH 30 ML, DICYCLOMINE HCL 20 MG, LIDOCAINE VISCOUS 2% 15ML (PO... PO ONE; +MEDR10TA72 PO; +OMEP20CA15 PO
[2022-10-18 15:22] VITALS: BP_SYST 129
--- NOTE | 2022-10-18 15:40 | NUR ---
52-year-old female with history of hypertension and bronchitis who presents to the ED for progressively worsening epigastric abdominal pain radiating to the mid chest over the last 2 days. No fever or chills, nausea vomiting, or diarrhea. No history of blood clots/recent travel/recent trauma/recent surgery/cancer/hormone use. No complaints of tearing chest pain radiating to back.
--- NOTE | 2022-10-18 15:46 | NUR ---
Pt to radiology with polysomnographic technician.
[2022-10-18 16:24] LABS: ALANINE AMINOTRANSFERASE 16 U/L (12-78); ALBUMIN 3.2 g/dL (3.4-4.8); ANION GAP 8 (5-15); ASPARTATE AMINOTRANSFERASE 12 U/L (10-37); CALCIUM 8.7 mg/dL (8.4-11.0); CHLORIDE 102 mmol/L (98-107); CREATININE 0.71 mg/dL (0.55-1.30); GFR AFRICAN AMERICAN 112 mL/min (>90); GLUCOSE 94 mg/dL (70-99); TOTAL BILIRUBIN 0.3 mg/dL (0.0-1.0); UREA NITROGEN, BLOOD 13 mg/dL (8-21)
--- NOTE | 2022-10-18 16:34 | NUR ---
Pt left to vehicle "to get something" returned smelling of cigarette smoke. Pt is coughing in bed.
[2022-10-18 16:35] LABS: BASOPHILS # (AUTO) 0.1 K/uL (0.0-0.2); BASOPHILS % (AUTO) 0.6 % (0.0-2.0); EOSINOPHILS # (AUTO) 0.1 K/uL (0.0-0.4); EOSINOPHILS % (AUTO) 1.3 % (0.0-4.0); HEMATOCRIT 43.8 % (36-48); HEMOGLOBIN 14.5 g/dL (12.0-16.0); LYMPHOCYTES # (AUTO) 2.3 K/uL (1.0-5.5); LYMPHOCYTES % (AUTO) 21.1 % (20.5-51.5); MEAN CORPUSCULAR HEMOGLOBIN 27 pg (27-31); MEAN CORPUSCULAR HGB CONC 33 % (32-36); MEAN CORPUSCULAR VOLUME 81 fL (79.0-98.0); MONOCYTES # (AUTO) 0.7 K/uL (0.0-1.0); MONOCYTES % (AUTO) 6.5 % (1.7-9.3); NEUTROPHILS # (AUTO) 7.8 K/uL (1.8-7.7); NEUTROPHILS % (AUTO) 70.5 % (40.0-70.0); PLATELET COUNT (AUTO) 326 K/uL (130-430); RED CELL DISTRIBUTION WIDTH 17.6 % (9.0-15.0); WHITE BLOOD COUNT (AUTO) 11.1 K/uL (4.8-10.8)
--- NOTE | 2022-10-18 17:00 | NUR ---
Pt complains of epigastric pain. 01/08 Notified MD Perla.
--- NOTE | 2022-10-18 17:35 | NUR ---
Pt medicated per MD order.
== END | disposition home or self-care (01) ==
LOC: SED 15:10
DX: K20.90 Esophagitis, unspecified without bleeding (principal); R10.13 Epigastric pain; R07.9 Chest pain, unspecified; E11.9 Type 2 diabetes mellitus without complications; I10 Essential (primary) hypertension; Z88.0 Allergy status to penicillin; Z88.1 Allergy status to other antibiotic agents; Z79.899 Other long term (current) drug therapy
CPT/HCPCS: 99285; 71045; 80053; 82550; 84703; 85025; 84484; 36415; 93005; J2001

== ENCOUNTER 2022-11-26 08:16 | Emergency (ER) | payer MEDICAID ==
[~2022-11-26] VITALS: Ht 167.6 cm; Wt 99.8 kg
[~2022-11-26 08:16] MED LIST changes: -MAG HYDROX/AL HYDROX/SIMETH 30 ML, DICYCLOMINE HCL 20 MG, LIDOCAINE VISCOUS 2% 15ML (PO... PO ONE
[2022-11-26 08:27] VITALS: BP_SYST 123
--- NOTE | 2022-11-26 08:27 | NUR ---
Patient triaged and placed in waiting room. VSS and patient appears in no acute distress at this time. Accompanied by , awaiting available bed, and MD notified of need for MSE.
--- NOTE | 2022-11-26 08:28 | NUR ---
DR. CASTILLO TO WAITING ROOM TO ASSESS PT.
--- NOTE | 2022-11-26 08:30 | NUR ---
RECEIVED PT TRIAGE NURSE, ASSUMED CARE.
[2022-11-26] MEDS ORDERED: PHEDM120 PO (08:34)
[2022-11-26] MEDS ORDERED: ALBMDI INH (08:34)
[2022-11-26] MEDS ORDERED: BENZ100C92 PO (08:34)
[2022-11-26] MEDS ORDERED: IPRATROPIUM/ALBUTEROL SULFATE 3 ML AMPUL.NEB (DUONEB) INH ONE (08:45)
--- NOTE | 2022-11-26 08:45 | NUR ---
PT RECEIVNG BREATHING TX AT THIS TIME.
--- NOTE | 2022-11-26 09:01 | NUR ---
Patient given written and verbal discharge instructions and verbalizes understanding. ER MD discussed with patient the results and treatment provided. Patient in stable condition. ID arm band removed. Rx of ALBUTEROL, BENZONATATE, PROMETHAZINE given. Patient educated on pain management and to follow up with PMD. Pain Scale 0/10. Opportunity for questions provided and answered. Medication side effect fact sheet provided.
[2022-11-26 09:04] VITALS: BP_SYST 123
== END 2022-11-26 09:01 | disposition home or self-care (01) ==
LOC: SED 08:16
DX: J40 Bronchitis, not specified as acute or chronic (principal); R05.9 Cough, unspecified; R06.2 Wheezing; E11.9 Type 2 diabetes mellitus without complications; I10 Essential (primary) hypertension; Z88.0 Allergy status to penicillin; Z88.1 Allergy status to other antibiotic agents; Z79.899 Other long term (current) drug therapy
CPT/HCPCS: 99283

== ENCOUNTER 2023-05-08 18:43 | Emergency (ER) | payer MEDICAID ==
[~2023-05-08] VITALS: Ht 167.6 cm; Wt 99.8 kg
[~2023-05-08 18:43] MED LIST changes: +ALBMDI INH; +BENZ100C92 PO; -DICL100G33 TP; +DICL100G60 TP; +PHEDM120 PO
[2023-05-08 18:54] VITALS: BP_SYST 145; PULSE 88; RESP 20; TEMP 98; O2SAT 96
[2023-05-08] MEDS ORDERED: LIDO700A30 TP (19:23)
[2023-05-08] MEDS ORDERED: CYCL10TA24 PO (19:23)
[2023-05-08] MEDS ORDERED: KETOROLAC TROMETHAMINE 30 MG VIAL IM ONE (19:30)
[2023-05-08 19:37] VITALS: BP_SYST 145; PULSE 88; RESP 20; TEMP 98; O2SAT 96
== END 2023-05-08 19:38 | disposition home or self-care (01) ==
LOC: SED 18:43
DX: S16.1XXA Strain of muscle, fascia and tendon at neck level, initial encounter (principal); Z88.0 Allergy status to penicillin; Z88.1 Allergy status to other antibiotic agents; E11.9 Type 2 diabetes mellitus without complications; I10 Essential (primary) hypertension; Z79.899 Other long term (current) drug therapy; X58.XXXA Exposure to other specified factors, initial encounter; Y93.89 Activity, other specified; Y92.89 Other specified places as the place of occurrence of the external cause; Y99.8 Other external cause status
CPT/HCPCS: 99283; 96372; J1885

== ENCOUNTER 2023-06-19 17:16 | Emergency (ER) | payer MEDICAID ==
[~2023-06-19] VITALS: Ht 167.6 cm; Wt 99.8 kg
[~2023-06-19 17:16] MED LIST changes: +CYCL10TA24 PO; +LIDO700A30 TP
[2023-06-19 17:22] VITALS: BP_SYST 123; PULSE 108; RESP 22; TEMP 98.3; O2SAT 94
[2023-06-19] MEDS ORDERED: IPRATROPIUM/ALBUTEROL SULFATE 3 ML AMPUL.NEB (DUONEB) INH ONE (17:45)
[2023-06-19] MEDS ORDERED: DEXAMETHASONE SOD PHOSPHATE 10 MG/ML VIAL IM ONE (17:45)
[2023-06-19] MEDS ORDERED: guaiFENesin/DEXTROMETHORPHAN 10 ML UDC PO ONE (17:45)
[2023-06-19] MEDS ORDERED: IBUPROFEN 800 MG TABLET PO ONE (17:45)
[2023-06-19] MEDS ORDERED: BENZONATATE 100 MG CAPSULE (TESSALON) PO ONE (18:30)
[2023-06-19] MEDS ORDERED: BENZONATATE 100 MG CAPSULE (TESSALON) ONE (18:40)
[2023-06-19] MEDS ORDERED: AZITHROMYCIN 250 MG TABLET PO ONE (18:45)
[2023-06-19] MEDS ORDERED: ROBAC PO (18:49)
[2023-06-19] MEDS ORDERED: ZIT250 PO (18:49)
[2023-06-19] MEDS ORDERED: PRED20TA PO (18:49)
[2023-06-19] MEDS ORDERED: IBUP-1969 PO (18:49)
[2023-06-19 19:05] VITALS: BP_SYST 123; PULSE 108; RESP 22; TEMP 98.3; O2SAT 95
== END 2023-06-19 19:05 | disposition home or self-care (01) ==
LOC: SED 17:16
DX: J44.1 Chronic obstructive pulmonary disease with (acute) exacerbation (principal); J40 Bronchitis, not specified as acute or chronic; R05.9 Cough, unspecified; R06.02 Shortness of breath; Z79.899 Other long term (current) drug therapy; Z20.822 Contact with and (suspected) exposure to COVID-19
CPT/HCPCS: 99284; 71045; 87426; 36415; 94640; 96372; J1100; Q0144